=== PATIENT | female | born 1955 | race Caucasian/White ===

== ENCOUNTER 2017-07-01 21:37 | Emergency (ER) | END 2017-07-02 06:29 | disposition home or self-care (01) ==

== ENCOUNTER 2017-07-04 13:42 | Emergency (ER) | END 2017-07-04 22:34 | disposition home or self-care (01) ==

== ENCOUNTER 2017-11-25 22:20 | Inpatient (IN) | END 2017-12-02 17:00 | disposition home health service (06) | DRG 494 ==

== ENCOUNTER 2018-04-16 21:11 | Emergency (ER) | END 2018-04-17 03:42 | disposition home or self-care (01) ==

== ENCOUNTER 2018-04-17 09:39 | Emergency (ER) | END 2018-04-17 11:24 | disposition home or self-care (01) ==